=== PATIENT | male | born 1985 | race Caucasian/White ===

== ENCOUNTER 2021-10-15 00:11 | Observation (INO) ==
[2021-10-15] MEDS ORDERED: MoRPHine SULFATE 10 MG/ML CARP/VIAL IV STA ×3 (00:42→09:31)
[2021-10-15 00:53] LABS: Basophils # (auto) 0.05 K/uL (0-0.2); Basophils % (auto) 0.3 %; Eosinophils # (auto) 0.07 K/uL (0-0.50); Eosinophils % (auto) 0.4 %; Hematocrit (blood only) 49.5 % (40.1-51.0); Immature Granulocytes # (auto) 0.18 K/uL (0.00-0.02); Immature Granulocytes % (auto) 0.9 %; Lymphocytes # (auto) 1.24 K/uL (1.2-3.4); Lymphocytes % (auto) 6.4 %; Mean Corpuscular Hemoglobin 28.5 pg (25.0-34.0); Mean Corpuscular Hgb Conc 34.3 g/dL (32.0-36.0); Mean Corpuscular Volume 83.1 fL (80.0-100.0); Mean Platelet Volume 8.8 fL (9.4-12.4); Monocytes # (auto) 1.47 K/uL (0.24-0.82); Monocytes % (auto) 7.6 %; Neutrophils # (auto) 16.34 K/uL (1.4-6.5); Neutrophils % (auto) 84.4 %; Platelet Count 364 K/uL (130-400); RDW Coefficient of Variation 12.8 % (11.5-14.5); RDW Standard Deviation 38.5 fL (36.4-46.3); Red Blood Count 5.96 M/uL (4.63-6.08); White Blood Count 19.35 K/ul (4.8-10.8)
[2021-10-15 01:15] LABS: Albumin Globulin Ratio 1.5 (0.9-2); Albumin Level 4.7 gm/dl (3.4-5.0); BUN Creatinine Ratio 19.6 (10-20); Bilirubin,Total 1.1 mg/dl (0.2-1.0); Calcium 9.6 mg/dl (8.5-10.1); Creatinine Clr Calc Pharmacy 122.6 ml/min; Est GFR (African American) 122.7 ml/min; Est GFR (Non-African American) 105.9 ml/min; Globulin 3.2 gm/dl (2.5-4.0); Potassium 3.5 mmol/L (3.5-5.1); Total Protein 7.9 gm/dl (6.0-8.3)
[2021-10-15] MEDS ORDERED: ONDANSETRON INJ 2 MG/ML 2 ML VIAL IV STA ×3 (01:34→09:31)
[2021-10-15] MEDS ORDERED: OPTIRAY 320 100ml IV ONE (02:04)
[2021-10-15] MEDS ORDERED: DICYCLOMINE HCL 10 MG/ML 2 ML AMP/VIAL IM ONE (03:41)
[2021-10-15 03:57] LABS: Adenovirus F 40/41 PCR Not Detected (NotDetected); Astrovirus PCR Not Detected (NotDetected); Campylobacter PCR Not Detected (NotDetected); Clostridium diff Toxin A/B PCR Not Detected (NotDetected); Cryptosporidium PCR Not Detected (NotDetected); Cyclospora cayetanensis PCR Not Detected (NotDetected); Entamoeba histolytica PCR Not Detected (NotDetected); Enteroaggregative E.coli(EAEC) Not Detected (NotDetected); Enteropathogenic E.coli (EPEC) Not Detected (NotDetected); Enterotoxigenic E.coli (ETEC) Not Detected (NotDetected); Giardia lamblia PCR Not Detected (NotDetected); Norovirus GI/GII PCR Not Detected (NotDetected); Plesiomonas shigelloides PCR Not Detected (NotDetected); Rotavirus A PCR Not Detected (NotDetected); Salmonella PCR Not Detected (NotDetected); Sapovirus PCR Not Detected (NotDetected); Shiga-like Toxin E.coli (STEC) Not Detected (NotDetected); Shigella/Enteroinvasive E.coli Not Detected (NotDetected); Vibrio cholerae PCR Not Detected (NotDetected); Vibrio species PCR Not Detected (NotDetected); Yersinia enterocolitica PCR Not Detected (NotDetected)
[2021-10-15] MEDS ORDERED: SODIUM CHLORIDE 0.9% 1000ML 1,000 ML IV SCH ×2 (05:07→12:30)
--- NOTE | 2021-10-15 06:54 | Surgery Consultation ---
Date of Consultation October 15, 2021 Assessment & Plan (1) Small bowel obstruction: It appears that the patient has an obstruction at his ilio anal anastomosis. There is also concern the patient may have active inflammatory bowel disease. The treating clinician emergency department is planning on having medicine admit the patient. We recommend proceeding as follows: Hydrate the patient with IV fluids Provide analgesics Provide antiemetics Implement n.p.o. status Place an NG tube for decompression which may improve his symptoms. Recommend gastroenterology consultation for further recommendations concerning the concern for inflammatory bowel disease Supervising Physician Co-Signing Physician Notes Dr. 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 [place], [facility], [place] who recently scoped the patient-patient had some inflammatory disease in the segment of bowel Patient has not vomited but does have some nausea and is significantly distended, he does have some decreased bowel sounds I do feel he would benefit from an NG tube to decompress his stomach and proximal small bowel GI consult to assess for possible IV steroids or other anti-inflammatory agents If patient does not improve he will require transfer to [facility], [place] for GI/colorectal surgery evaluation History of Present Illness Reason for Consultation: Small bowel obstruction History of Present Illness This is a 35-year-old male who has an underlying history of ulcerative colitis. Patient says that this condition was diagnosed in 1995. 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 He notes that his ileostomy was ultimately reversed subsequently thereafter also at [facility]. Patient notes that following his surgery he was off ulcerative colitis medications and he was doing well. He reports that he would intermittently have episodes of pouchitis that would usually respond to modalities such as antibiotics and steroids. Currently the patient notes that he is taking his a prednisone taper. He presented the emergency department as he developed some generalized abdominal pain approximately 1 day ago. He does not note any modifying factors or radiation he notes the pain is now primarily located near the umbilicus. He has had nausea without vomiting. He is having loose bowel movements without any hematochezia or melena. He denies any fevers, shakes, or chills. Concerning the patient's inflammatory bowel disease he sees a Dr. [place] at [facility] in [place], [place]. He also follows with Dr. Franklin Mclaughlin locally. In the emergency department the patient underwent a CT scan of the abdomen and pelvis that showed concern for a bowel obstruction with a transition point near the distal ileum at the point of patient's ileal ileal anastomosis. There is also a 13 cm area of the diffuse mucosal enhancement and thickening noted which is concerning for inflammatory disease. Labs include a CBC her white blood cell count was 19.3. Hemoglobin, hematocrit, and platelet count were normal. His chemistry profile showed sodium was 135. Potassium, BUN, and creatinine were all normal. Slight elevation of his total bilirubin at 1.1 but no other LFT abnormalities were noted. His lipase was not elevated. At the time of my interview the patient was resting comfortably in bed he was in no distress. Allergies Allergy/AdvReac Type Severity Reaction Status Date / Time ethinyl estradiol Allergy Unknown Verified 10/15/21 02:08 [From Seasonale ()] levonorgestrel Allergy Unknown Verified 10/15/21 02:08 [From Seasonale ()] metronidazole [From Flagyl] AdvReac Mild abdominal Verified 10/15/21 02:08 cramping Home Medications Medication Instructions Recorded Confirmed Type cholecalciferol (vitamin D3) 1,250 50,000 unit PO WK cap 05/24/21 10/15/21 History mcg (50,000 unit) capsule cyanocobalamin (vitamin B-12) 1,000 mcg IM WE ml 05/24/21 10/15/21 History 1,000 mcg/mL injection solution lansoprazole 15 mg capsule,delayed 30 mg PO DAILY 05/24/21 10/15/21 History release (Prevacid 24Hr) fluticasone propionate 50 2 spray INTRANASAL DAILY 08/15/21 10/15/21 History mcg/actuation nasal spray,suspension prednisone 5 mg tablet 5 mg PO .TAPER UD 10/15/21 10/15/21 History Patient History Medical History Acid reflux Anal fissure Crohn's disease Diffuse ulcerations of jejunum and ileum Gastritis Hiatal hernia Hypertension Inflammation of ileoanal pouch Pouchitis Rectal lesion Ulcerative colitis Surgical History H/O colonoscopy History of esophagogastroduodenoscopy (EGD) History of total colectomy S/P proctocolectomy Family History Denies family history of Crohn's disease Colorectal cancer Ulcerative colitis Social History Smoking Status: Current every day smoker Hx Alcohol Use: Yes (social use) Hx Substance Use: No Preferred Language: Chilean Feels Safe at Home: Yes Review of Systems Constitutional: no fever and no chills Eyes: no diplopia Ear, Nose, Mouth, Throat: no ear pain Respiratory: no cough and no dyspnea Cardiovascular: no chest pain Gastrointestinal: as per Subjective / HPI, + abdominal pain and + nausea; no vomiting Genitourinary: no dysuria Musculoskeletal: no back pain Integumentary: no rash Neurologic: no localized weakness Physical Exam Constitutional: WD/WN, vitals as above Eyes: no conjunctival abnormality ENMT: Ears: no hearing impairment and no external ear abnormality Dry mucous membranes noted Neck: trachea midline Respiratory: normal respiratory effort, lungs clear to auscultation Cardiovascular: Rate/Rhythm: regular rate and regular rhythm Vessels: dorsalis pedis pulses present and radial pulses present Gastrointestinal (Abdomen): Abdomen is distended with hypoactive bowel sounds. There is no rebound tenderness or guarding. There is pain noted with palpation which is greatest near the umbilicus. Musculoskeletal: No calf tenderness Skin: no rashes Neurologic: moves all extremities Psychiatric: A+Ox3, euthymic affect Results & Data ([facility]) Vital Signs (Past 12 Hours) Vital Signs Temp Pulse Resp BP Pulse Ox 10/15/21 02:50 97 10/15/21 02:40 95 10/15/21 02:30 94 10/15/21 02:27 125/90 10/15/21 02:26 96 10/15/21 01:50 85 17 95 10/15/21 01:40 94 H 13 95 10/15/21 01:30 92 H 12 93 10/15/21 01:20 97 H 12 96 10/15/21 01:10 89 12 94 10/15/21 01:00 99 H 16 95 10/15/21 00:50 92 H 19 95 10/15/21 00:40 98 H 19 95 10/15/21 00:31 100 H 22 151/111 H 95 10/15/21 00:14 36.9 C 103 H 19 155/106 H 95 PG Care Time/CCT Total # of Minutes Spent Total Time Spent with Patient: Total time spent is greater than 50% in coordination of care (as documented) at patient's floor/unit and/or counseling patient: Coding Level of Care Code 69951 Inpt Consult Level 5 Diagnoses Small bowel obstruction K56.609
--- NOTE | 2021-10-15 07:02 | Emergency Department Note ---
Impression & Plan Bowel obstruction, Crohn's disease, Ulcerative colitis ED Provider Note CHIEF COMPLAINT: Abdominal pain HISTORY OF PRESENT ILLNESS: Yusef Brandon is a 35 year old male with history of ulcerative colitis s/p previous colectomy, pouchitis, Crohn's disease, Acid reflux, among others listed below who presents to the Emergency Department for evaluation of intermittent sharp and cramping pains to his left upper abdominal quadrant which have been worsening since yesterday morning. He also associates nausea and has had several episodes of watery diarrhea. Currently, he rates his discomfort as a 9/10 which he states worsens right before he has a bowel movement. No hematochezia or melena. No vomiting. The patient otherwise denies recent fevers/chills, chest pain, respiratory difficulties, or urinary symptoms. Of note, the patient recently had a pouchoscopy with Dr. Nicholson at [facility] and was found to have active inflammatory disease with involvement of the ileum and Crohns proximal to the pouch. They opted to stop his Entyvio with plans to start Stelera next week. He was also started on a Prednisone taper started at 30 mg daily to be decreased by 5 mg weekly (Currently on 25 mg daily). The patient does state that he frequently has abdominal pain and diarrhea but not to this severity. His bowel movements are also much more watery than normal. REVIEW OF SYSTEMS: 10 systems were reviewed and were negative unless otherwise stated in HPI as above PHYSICAL EXAM: VITALS: Vitals are noted on the nurse's note and reviewed by myself. Vital signs stable. General: Resting in bed, no acute distress HEENT: Normocephalic, PERRL, EOMI, mucous membranes moist, oropharynx clear Neck: Supple, non-tender Resp: Good inspiratory effort on room air, lung sounds clear bilaterally CV: Regular rate and rhythm, normal S1-S2, peripheral pulses palpated Back: No CVA tenderness to palpation Abd: Mildly distended but soft. Tender to palpation in the left upper quadrant with some guarding. No rebound or rigidity MSK: Moving all extremities without apparent pain or difficulty Integumentary: Warm, dry, no appreciable rash Neuro: Awake, alert and oriented x 3, interacting and answering questions appropriately Differential diagnosis includes appendicitis, diverticulitis, obstruction, inf lammatory bowel disease, renal colic, PUD, biliary pathology, pancreatitis, mesenteric ischemia, infection, perforated viscus, as well as others were entertained. EMERGENCY DEPARTMENT COURSE: Physical exam and history were performed. Nursing triage notes, EMR, and medication list were personally reviewed. Patient is a 35 year old male with history of ulcerative colitis s/p previous colectomy, pouchitis, Crohn's disease, Acid reflux, among others listed below who presents to the Emergency Department for evaluation of intermittent sharp and cramping pains to his left upper abdominal quadrant which have been worsening since yesterday morning. He also associates nausea and has had several episodes of watery diarrhea. Additional history as described above. See physical exam as noted above. The patient was offered medications. IV access was established was given a total of 1L NSS x 2, morphine 6 mg x 2, Zofran 4 mg x 2 and Bentyl 20 mg IM throughout his ED course. Labs were obtained and reviewed by myself as below. Of note, he does have leukocytosis with a WBC of 19.35 which could be due to current prednisone use. No concern for anemia with hemoglobin 17.0. Electrolytes WNL. Renal indices stable. LFTs nondiagnostic. Lipase not elevated at 14. Stool cultures were obtained and were negative. Scan of the abdomen and pelvis were obtained and reviewed by stat rad radi ologist myself as below. Imaging did show a bowel obstruction with transition point at the distal ileum at the ileoanal anastomosis. At the transition point, there is a 13 cm stretch of sigmoid colon with diffuse mucosal enhancement, annular wall thickening and narrowing. Findings concerning for active inflammatory disease. The patient was reevaluated several times throughout his emergency department course and was given the medications as above for ongoing pain and nausea. He did have several movements of liquid bowel movements while here. I did discuss the results of the above findings with him at bedside. Given his bowel obstruction, he will benefit from continued care in the hospital. I did consult Pedro Longo PA-C of General Surgery who agreed to evaluate the patient. I also c ontacted Dr. Horvath of the [facility] Hospitalist group who also agreed to evaluate the patient. General Surgery and the Hospitalist service evaluated the patient. They suggest transfer to a facility with colorectal surgery, likely [facility], for further management. The patient verbalized his understanding and agreement with the treatment plan as above. [facility] has been contacted, awaiting services with Colorectal surgery to contact us back regarding availability/acceptance. The patient was signed out to Dr. Chavez at change of shift pending likely transfer. Please refer to his documentation for further patient care, plan and disposition. The chart was completed utilizing [employer] Voice Recognition Software. Grammatical errors, random word insertions, pronoun errors, and incomplete sentences are an occasional consequence of this system due to software limitations, ambient noise, and hardware issues. Any formal questions or concerns about the content, text, or information contained within the body of this dictation should be directly addressed to the provider for clarification. Past Med/Surg History Medical History Acid reflux Anal fissure Crohn's disease Diffuse ulcerations of jejunum and ileum Gastritis Hiatal hernia Hypertension Inflammation of ileoanal pouch Pouchitis Rectal lesion Ulcerative colitis Surgical History H/O colonoscopy History of esophagogastroduodenoscopy (EGD) History of total colectomy S/P proctocolectomy Family History Denies family history of Crohn's disease Colorectal cancer Ulcerative colitis Social History Smoking Status: Current every day smoker Hx Alcohol Use: Yes (social use) Hx Substance Use: No Preferred Language: Armenian Feels Safe at Home: Yes Allergies Allergies Allergy/AdvReac Type Severity Reaction Status Date / Time ethinyl estradiol Allergy Unknown Verified 10/15/21 02:08 [From Seasonale (91)] levonorgestrel Allergy Unknown Verified 10/15/21 02:08 [From Seasonale (91)] metronidazole [From Flagyl] AdvReac Mild abdominal Verified 10/15/21 02:08 cramping Home Meds Home Medications Medication Instructions Recorded Confirmed cholecalciferol (vitamin D3) 1,250 50,000 unit PO WK cap 05/24/21 10/15/21 mcg (50,000 unit) capsule cyanocobalamin (vitamin B-12) 1,000 mcg IM WE ml 05/24/21 10/15/21 1,000 mcg/mL injection solution lansoprazole 15 mg capsule,delayed 30 mg PO DAILY 05/24/21 10/15/21 release (Prevacid 24Hr) fluticasone propionate 50 2 spray INTRANASAL DAILY 08/15/21 10/15/21 mcg/actuation nasal spray,suspension prednisone 5 mg tablet 5 mg PO .TAPER UD 10/15/21 10/15/21 Results & Data (ED) Vital Signs Vital Signs - 24 hr 10/15/21 00:11 10/15/21 00:14 10/15/21 00:31 Temperature 36.9 C Temperature Source Temporal Artery Scan Pulse Rate 103 H 100 H Pulse Rate from SpO2 Sensor 98 H Respiratory Rate 19 22 Respiratory Effort / Characteristics Non-Labored Respiratory Depth Normal Blood Pressure 155/106 H 151/111 H Blood Pressure Mean 122 124 Pulse Oximetry 95 95 Oxygen Delivery Method Room Air Sepsis Recent Fever Within 48 Hours No Sepsis New/Unexplained Change in Mental Status N/A Sepsis Action Taken by Nursing No Action Required 10/15/21 00:40 10/15/21 00:50 10/15/21 01:00 Temperature Temperature Source Pulse Rate 98 H 92 H 99 H Pulse Rate from SpO2 Sensor 94 H 94 H 95 H Respiratory Rate 19 19 16 Respiratory Effort / Characteristics Respiratory Depth Blood Pressure Blood Pressure Mean Pulse Oximetry 95 95 95 Oxygen Delivery Method Sepsis Recent Fever Within 48 Hours Sepsis New/Unexplained Change in Mental Status Sepsis Action Taken by Nursing 10/15/21 01:10 10/15/21 01:20 10/15/21 01:30 Temperature Temperature Source Pulse Rate 89 97 H 92 H Pulse Rate from SpO2 Sensor 92 H 92 H 94 H Respiratory Rate 12 12 12 Respiratory Effort / Characteristics Respiratory Depth Blood Pressure Blood Pressure Mean Pulse Oximetry 94 96 93 Oxygen Delivery Method Sepsis Recent Fever Within 48 Hours Sepsis New/Unexplained Change in Mental Status Sepsis Action Taken by Nursing 10/15/21 01:40 10/15/21 01:50 10/15/21 02:26 Temperature Temperature Source Pulse Rate 94 H 85 Pulse Rate from SpO2 Sensor 95 H 81 92 H Respiratory Rate 13 17 Respiratory Effort / Characteristics Respiratory Depth Blood Pressure Blood Pressure Mean Pulse Oximetry 95 95 96 Oxygen Delivery Method Sepsis Recent Fever Within 48 Hours Sepsis New/Unexplained Change in Mental Status Sepsis Action Taken by Nursing 10/15/21 02:27 10/15/21 02:30 10/15/21 02:40 Temperature Temperature Source Pulse Rate Pulse Rate from SpO2 Sensor 87 87 Respiratory Rate Respiratory Effort / Characteristics Respiratory Depth Blood Pressure 125/90 Blood Pressure Mean 101 Pulse Oximetry 94 95 Oxygen Delivery Method Sepsis Recent Fever Within 48 Hours Sepsis New/Unexplained Change in Mental Status Sepsis Action Taken by Nursing 10/15/21 02:50 10/15/21 04:11 10/15/21 07:11 Temperature Temperature Source Pulse Rate Pulse Rate from SpO2 Sensor 87 110 H Respiratory Rate Respiratory Effort / Characteristics Non-Labored Respiratory Depth Normal Blood Pressure Blood Pressure Mean Pulse Oximetry 97 Oxygen Delivery Method Sepsis Recent Fever Within 48 Hours Sepsis New/Unexplained Change in Mental Status Sepsis Action Taken by Nursing 10/15/21 07:52 10/15/21 08:00 10/15/21 08:13 Temperature Temperature Source Pulse Rate Pulse Rate from SpO2 Sensor 92 H 95 H 90 Respiratory Rate Respiratory Effort / Characteristics Respiratory Depth Blood Pressure 169/98 H Blood Pressure Mean 121 Pulse Oximetry 93 94 93 Oxygen Delivery Method Sepsis Recent Fever Within 48 Hours Sepsis New/Unexplained Change in Mental Status Sepsis Action Taken by Nursing Laboratory Data Result diagrams: 10/15/21 00:30 10/15/21 00:30 Lab Results 10/15/21 10/15/21 10/15/21 Range/Units 00:30 00:30 02:25 WBC 19.35 H (4.8-10.8) K/ul RBC 5.96 (4.63-6.08) M/uL Hgb 17.0 (14.0-18.0) g/dl Hct 49.5 (40.1-51.0) % MCV 83.1 (80.0-100.0) fL MCH 28.5 (25.0-34.0) pg MCHC 34.3 (32.0-36.0) g/dL RDW Std Deviation 38.5 (36.4-46.3) fL RDW Coeff of Barbie 12.8 (11.5-14.5) % Plt Count 364 (130-400) K/uL MPV 8.8 L (9.4-12.4) fL Immature Gran % (Auto) 0.9 % Neut % (Auto) 84.4 % Lymph % (Auto) 6.4 % Calloway % (Auto) 7.6 % Eos % (Auto) 0.4 % Baso % (Auto) 0.3 % Neut # (Auto) 16.34 H (1.4-6.5) K/uL Lymph # (Auto) 1.24 (1.2-3.4) K/uL Calloway # (Auto) 1.47 H (0.24-0.82) K/uL Eos # (Auto) 0.07 (0-0.50) K/uL Baso # (Auto) 0.05 (0-0.2) K/uL Immature Gran # (Auto) 0.18 H (0.00-0.02) K/uL Sodium 135 L (136-145) mmol/L Potassium 3.5 (3.5-5.1) mmol/L Chloride 99 (98-107) mmol/L Carbon Dioxide 26 (21-32) mmol/L Anion Gap 10 (3-11) BUN 18 (6-23) mg/dl Creatinine 0.92 (0.6-1.4) mg/dl Est Cr Clr Drug Dosing 122.6 ml/min Est GFR ( Amer) 122.7 ml/min Est GFR (Non-Af Amer) 105.9 ml/min BUN/Creatinine Ratio 19.6 (10-20) Glucose 130 H (70-99(Fasting)) mg/dl Calcium 9.6 (8.5-10.1) mg/dl Total Bilirubin 1.1 H (0.2-1.0) mg/dl AST 16 (13-39) U/L ALT 25 (7-52) U/L Alkaline Phosphatase 53 (34-104) U/L Total Protein 7.9 (6.0-8.3) gm/dl Albumin 4.7 (3.4-5.0) gm/dl Globulin 3.2 (2.5-4.0) gm/dl Albumin/Globulin Ratio 1.5 (0.9-2) Lipase 14 (11-82) U/L Stl C. cayetanensis PCR Not Detected (NotDetected) Stool Rotavirus A PCR Not Detected (NotDetected) Stl Adenov F 40/41 PCR Not Detected (NotDetected) Stool Astrovirus (PCR) Not Detected (NotDetected) Stool Campylobacter PCR Not Detected (NotDetected) Stl C. diff Tox A/B PCR Not Detected (NotDetected) Stool Cryptosporidium PCR Not Detected (NotDetected) Stl E.coli Shiga Tox PCR Not Detected (NotDetected) Stl Enterotoxigenic E PCR Not Detected (NotDetected) Stool EPEC (PCR) Not Detected (NotDetected) Stool EAEC (PCR) Not Detected (NotDetected) Stl E. histolytica PCR Not Detected (NotDetected) Stool Giardia Lamblia PCR Not Detected (NotDetected) Stool Salmonella PCR Not Detected (NotDetected) Stool Sapovirus (PCR) Not Detected (NotDetected) Stl P. shigelloides PCR Not Detected (NotDetected) Stl Shigella/EIEC PCR Not Detected (NotDetected) St Y.enterocolitica PCR Not Detected (NotDetected) Stool Vibrio (PCR) Not Detected (NotDetected) Stl Vibrio cholerae PCR Not Detected (NotDetected) Stl Norovirus GI/GII PCR Not Detected (NotDetected) SARS-CoV-2, RNA, NAAT (NEGATIVE) 10/15/21 Range/Units 08:15 WBC (4.8-10.8) K/ul RBC (4.63-6.08) M/uL Hgb (14.0-18.0) g/dl Hct (40.1-51.0) % MCV (80.0-100.0) fL MCH (25.0-34.0) pg MCHC (32.0-36.0) g/dL RDW Std Deviation (36.4-46.3) fL RDW Coeff of Barbie (11.5-14.5) % Plt Count (130-400) K/uL MPV (9.4-12.4) fL Immature Gran % (Auto) % Neut % (Auto) % Lymph % (Auto) % Calloway % (Auto) % Eos % (Auto) % Baso % (Auto) % Neut # (Auto) (1.4-6.5) K/uL Lymph # (Auto) (1.2-3.4) K/uL Calloway # (Auto) (0.24-0.82) K/uL Eos # (Auto) (0-0.50) K/uL Baso # (Auto) (0-0.2) K/uL Immature Gran # (Auto) (0.00-0.02) K/uL Sodium (136-145) mmol/L Potassium (3.5-5.1) mmol/L Chloride (98-107) mmol/L Carbon Dioxide (21-32) mmol/L Anion Gap (3-11) BUN (6-23) mg/dl Creatinine (0.6-1.4) mg/dl Est Cr Clr Drug Dosing ml/min Est GFR ( Amer) ml/min Est GFR (Non-Af Amer) ml/min BUN/Creatinine Ratio (10-20) Glucose (70-99(Fasting)) mg/dl Calcium (8.5-10.1) mg/dl Total Bilirubin (0.2-1.0) mg/dl AST (13-39) U/L ALT (7-52) U/L Alkaline Phosphatase (34-104) U/L Total Protein (6.0-8.3) gm/dl Albumin (3.4-5.0) gm/dl Globulin (2.5-4.0) gm/dl Albumin/Globulin Ratio (0.9-2) Lipase (11-82) U/L Stl C. cayetanensis PCR (NotDetected) Stool Rotavirus A PCR (NotDetected) Stl Adenov F 40/41 PCR (NotDetected) Stool Astrovirus (PCR) (NotDetected) Stool Campylobacter PCR (NotDetected) Stl C. diff Tox A/B PCR (NotDetected) Stool Cryptosporidium PCR (NotDetected) Stl E.coli Shiga Tox PCR (NotDetected) Stl Enterotoxigenic E PCR (NotDetected) Stool EPEC (PCR) (NotDetected) Stool EAEC (PCR) (NotDetected) Stl E. histolytica PCR (NotDetected) Stool Giardia Lamblia PCR (NotDetected) Stool Salmonella PCR (NotDetected) Stool Sapovirus (PCR) (NotDetected) Stl P. shigelloides PCR (NotDetected) Stl Shigella/EIEC PCR (NotDetected) St Y.enterocolitica PCR (NotDetected) Stool Vibrio (PCR) (NotDetected) Stl Vibrio cholerae PCR (NotDetected) Stl Norovirus GI/GII PCR (NotDetected) SARS-CoV-2, RNA, NAAT NEGATIVE (NEGATIVE) Administered Medications Discontinued Medications Dicyclomine HCl (Dicyclomine Hcl 10 Mg/Ml 2 Ml Amp/Vial) 20 mg IM NOW ONE Stop: 10/15/21 03:42 Last Admin: 10/15/21 03:51 Dose: 20 mg Documented by: [id number] Sodium Chloride (Nss 1000ml) 1,000 mls @ 999 mls/hr IV .Q1H1M KASEY Stop: 10/15/21 06:07 Last Infusion: 10/15/21 07:20 Dose: 0 mls/hr Documented by: [id number] Admin: 10/15/21 05:09 Dose: 999 mls/hr Documented by: [id number] Ioversol (Optiray 320 100ml) 94 ml IV ONCE ONE Stop: 10/15/21 02:05 Last Admin: 10/15/21 02:05 Dose: 94 ml Documented by: [id number] Morphine Sulfate (Morphine Sulfate 10 Mg/Ml Carp/Vial) 6 mg IV NOW STA Stop: 10/15/21 00:43 Last Admin: 10/15/21 00:58 Dose: 6 mg Documented by: [id number] Morphine Sulfate (Morphine Sulfate 10 Mg/Ml Carp/Vial) 6 mg IV NOW STA Stop: 10/15/21 05:07 Last Admin: 10/15/21 05:18 Dose: 6 mg Documented by: [id number] Morphine Sulfate (Morphine Sulfate 10 Mg/Ml Carp/Vial) 6 mg IV NOW STA Stop: 10/15/21 09:32 Last Admin: 10/15/21 09:40 Dose: 6 mg Documented by: [id number] Ondansetron HCl (Ondansetron Inj 2 Mg/Ml 2 Ml Vial) 4 mg IV NOW STA Stop: 10/15/21 01:35 Last Admin: 10/15/21 01:42 Dose: 4 mg Documented by: [id number] Ondansetron HCl (Ondansetron Inj 2 Mg/Ml 2 Ml Vial) 4 mg IV NOW STA Stop: 10/15/21 05:07 Last Admin: 10/15/21 05:18 Dose: 4 mg Documented by: [id number] Ondansetron HCl (Ondansetron Inj 2 Mg/Ml 2 Ml Vial) 4 mg IV NOW STA Stop: 10/15/21 09:32 Last Admin: 10/15/21 09:38 Dose: 4 mg Documented by: [id number] Imaging Data My Impression: CT Abd/Pelvis: Preliminary Findings Only See Final Report For Complete Findings CT ABDOMEN & PELVIS With Contrast: Bowel obstruction with transition point at the distal ileum at the ileoanal anastomosis. At the transition point is a 13 cm stretch of sigmoid colon with diffuse of mucosal enhancement, annular wall thickening, and narrowing. Findings are concerning for active inflammatory disease. Consider MR enterography if there is further concern. Upstream bowel loops measure up to 4.9 cm. No evidence of perforation or abscess. No pneumatosis or portal venous gas. No other acute findings. Radiologist: Terrence Pemberton MD Radiologist's Impression: Chest X-Ray 10/15/21 07:53 XR chest 1V portable CLINICAL HISTORY: NG tube placement TECHNIQUE: Single frontal radiograph of the chest was obtained. Comparison: None available at the time of this dictation. FINDINGS: Enteric tube side-port and tip project over the gastric bubble. The cardiomediastinal silhouette is normal. The lungs are clear. No evidence of pleural effusion or pneumothorax. IMPRESSION: Enteric tube is in satisfactory position. ACT 112: Negative or not required by law. Electronically signed by: Micheal Dominguez M.D. 10/15/2021 8:36 AM Final results pending review by the [facility] radiologist. Discharge Plan Visit Data Chief Complaint: Abdominal Pain Stated Complaint: ABD PAIN ED Provider: David Chavez ED Midlevel Provider: Brandy Mccarty Discharge Problem: Bowel obstruction, Crohn's disease, Ulcerative colitis Patient Disposition: Still a Patient Forms Stand Alone Forms: My [facility] Prescriptions Prescriptions: No Action cholecalciferol (vitamin D3) 1,250 mcg (50,000 unit) capsule 50,000 unit PO WK RF: 0 cyanocobalamin (vitamin B-12) 1,000 mcg/mL solution 1,000 mcg IM WE RF: 0 lansoprazole [Prevacid 24Hr] 15 mg capsule,delayed release(DR/EC) 30 mg PO DAILY RF: 0 fluticasone propionate 50 mcg/actuation spray,suspension 2 spray intranasal DAILY RF: 0 prednisone 5 mg tablet 5 mg PO .TAPER UD RF: 0 Referrals Referrals: Sloan Nicholson M.D. [Primary Care Provider] -
--- NOTE | 2021-10-15 08:37 | XRay Report ---
XR chest 1V portable CLINICAL HISTORY: NG tube placement TECHNIQUE: Single frontal radiograph of the chest was obtained. Comparison: None available at the time of this dictation. FINDINGS: Enteric tube side-port and tip project over the gastric bubble. The cardiomediastinal silhouette is n ormal. The lungs are clear. No evidence of pleural effusion or pneumothorax. IMPRESSION: Enteric tube is in satisfactory position. ACT 112: Negative or not required by law. Electronically signed by: Micheal Dominguez M.D. 10/15/2021 8:36 AM
--- NOTE | 2021-10-15 10:14 | CT Scan Report ---
CT abd pelvis IV con only CLINICAL HISTORY: LUQ abdominal pain, hx colitis, sp colectomy COMPARISON STUDY: No previous studies for comparison. CT DOSE: 653.37 mGy.cm TECHNIQUE: Standard CT of the Abdomen and Pelvis was performed with IV contrast. A dose lowering mariangel hnique was utilized adhering to the principles of ALARA. Contrast Volume: Optiray 320, 94 ml. The patient did not receive oral contrast. FINDINGS: Lung base: The lung bases are clear. Abdominal cavity: There is no evidence for abdominal mass, adenopathy or ascites. Liver: There is homogeneous attenuation of the liver parenchyma. There is no evidence for enhancing m ass lesion. Spleen: There is homogeneous attenuation of the splenic parenchyma. There is no enhancing mass lesion . Pancreas: There is homogeneous attenuation of the pancreatic parenchyma. There is no evidence for mas s lesion or peripancreatic fluid collection. Gall Bladder: The gallbladder is well distended with no evidence for intraluminal calculi, wall thick ening or pericholecystic edema. Adrenal glands: The adrenal glands are normal in size and attenuation. There is no evidence for enhan cing mass lesion. Kidneys: There is homogeneous attenuation of the renal parenchyma bilaterally. There is no evidence f or renal calculus or hydronephrosis. There is no evidence for enhancing mass. Bowel: The patient is status post total colectomy with J pouch procedure. There is marked distention of stomach with liquid and food stuff. There is moderate dilatation of the small bowel loops througho ut the abdomen and pelvis to the level of the anastomosis. There is narrowing of the distal ileum at the anastomosis producing the obstruction present. There are no inflammatory changes present. There i s no evidence for free air. Bladder: The bladder is within normal limits with no evidence for focal mass, calculus or diverticulu m. : There is no evidence for pelvic mass or adenopathy. There is no evidence for pelvic ascites. Vasculature: There is no evidence for aneurysmal dilatation of the abdominal aorta. Osseous structures: There is no acute osseous pathology. IMPRESSION: 1. Status post total colectomy with J-pouch procedure. 2. Stricture of the distal ileum at the anastomosis of the J-pouch producing moderate bowel obstructi on. ACT 112: Negative or not required by law. Electronically signed by: Terrence Almanza M.D. 10/15/2021 10:12 AM
[2021-10-15 10:32] LABS: Basophils # (auto) 0.06 K/uL (0-0.2); Basophils % (auto) 0.5 %; Eosinophils # (auto) 0.16 K/uL (0-0.50); Eosinophils % (auto) 1.4 %; Hematocrit (blood only) 46.4 % (40.1-51.0); Hemoglobin 15.9 g/dl (14.0-18.0); Immature Granulocytes # (auto) 0.05 K/uL (0.00-0.02); Immature Granulocytes % (auto) 0.4 %; Lymphocytes # (auto) 0.85 K/uL (1.2-3.4); Lymphocytes % (auto) 7.3 %; Mean Corpuscular Hemoglobin 28.6 pg (25.0-34.0); Mean Corpuscular Hgb Conc 34.3 g/dL (32.0-36.0); Mean Corpuscular Volume 83.5 fL (80.0-100.0); Mean Platelet Volume 8.6 fL (9.4-12.4); Monocytes # (auto) 0.92 K/uL (0.24-0.82); Monocytes % (auto) 7.9 %; Neutrophils # (auto) 9.59 K/uL (1.4-6.5); Neutrophils % (auto) 82.5 %; Platelet Count 214 K/uL (130-400); RDW Standard Deviation 39.5 fL (36.4-46.3); Red Blood Count 5.56 M/uL (4.63-6.08); White Blood Count 11.63 K/ul (4.8-10.8)
[2021-10-15 10:50] LABS: Albumin Globulin Ratio 1.4 (0.9-2); Albumin Level 3.9 gm/dl (3.4-5.0); BUN Creatinine Ratio 25.3 (10-20); Bilirubin,Total 1.6 mg/dl (0.2-1.0); Calcium 8.5 mg/dl (8.5-10.1); Creatinine Clr Calc Pharmacy 142.8 ml/min; Est GFR (Non-African American) 114.7 ml/min; Globulin 2.8 gm/dl (2.5-4.0); Potassium 3.4 mmol/L (3.5-5.1); Total Protein 6.7 gm/dl (6.0-8.3)
--- NOTE | 2021-10-15 12:51 | Gastrointestinal Consultation ---
Date of Consultation October 15, 2021 Assessment & Plan (1) Small bowel obstruction: (2) Inflammatory bowel disease: SBO at anastomosis site of prior surgery, worsening IBD despite prednisone taper recs: start IV solumedrol now 20 mg [id number] NPO NG tube to intermittent suction pain control prn, IVFs agree with primary team and recommend transfer to [facility] where there is colorectal surgery availability should he not respond to IV steroids/continue to deteriorate Thank you for allowing me to participate in the care of this patient. History of Present Illness History of Present Illness 35 year old male with history of ulcerative colitis s/p previous colectomy, pouchitis, Inflammatory Bowel disease on entyvio here with worsening abdominal pains. He developed watery diarrhea and sharp LUQ abdominal pains yesterday with nausea, pain was 9/10. CT imaging shows SBO at the site of his prior surgery at the anastomosis it appears. He sees [facility] and Gerber ESTEVEZ and the plan was to switch him to stelara this coming week. He is on a prednisone taper currently at 25 mg daily. CBC and CMP reviewed. NG tube in place. Allergies Allergy/AdvReac Type Severity Reaction Status Date / Time ethinyl estradiol Allergy Unknown Verified 10/15/21 02:08 [From Seasonale ()] levonorgestrel Allergy Unknown Verified 10/15/21 02:08 [From Seasonale (91)] metronidazole [From Flagyl] AdvReac Mild abdominal Verified 10/15/21 02:08 cramping Home Medications Medication Instructions Recorded Confirmed Type cholecalciferol (vitamin D3) 1,250 50,000 unit PO WK cap 05/24/21 10/15/21 History mcg (50,000 unit) capsule cyanocobalamin (vitamin B-12) 1,000 mcg IM WE ml 05/24/21 10/15/21 History 1,000 mcg/mL injection solution lansoprazole 15 mg capsule,delayed 30 mg PO DAILY 05/24/21 10/15/21 History release (Prevacid 24Hr) fluticasone propionate 50 2 spray INTRANASAL DAILY 08/15/21 10/15/21 History mcg/actuation nasal spray,suspension prednisone 5 mg tablet 5 mg PO .TAPER UD 10/15/21 10/15/21 History Patient History Medical History Acid reflux Anal fissure Crohn's disease Diffuse ulcerations of jejunum and ileum Gastritis Hiatal hernia Hypertension Inflammation of ileoanal pouch Pouchitis Rectal lesion Ulcerative colitis Surgical History H/O colonoscopy History of esophagogastroduodenoscopy (EGD) History of total colectomy S/P proctocolectomy Family History Denies family history of Crohn's disease Colorectal cancer Ulcerative colitis Social History Smoking Status: Current every day smoker Hx Alcohol Use: Yes (social use) Hx Substance Use: No Preferred Language: Omani Feels Safe at Home: Yes Review of Systems Constitutional: no fever, no chills and no weight loss Eyes: as per Subjective / HPI Ear, Nose, Mouth, Throat: as per Subjective / HPI Respiratory: no dyspnea and no dyspnea on exertion Cardiovascular: no chest pain and no palpitations Gastrointestinal: as per Subjective / HPI Musculoskeletal: no joint pain and no swelling Integumentary: no rash and no lesions Neurologic: no numbness and no paresthesia Psychiatric: no depression and no anxiety Endocrine: no fatigue Hematologic / Lymphatic: no easy bleeding and no easy bruising Physical Exam Constitutional: WD/WN, vitals as above Eyes: EOM intact bilaterally Neck: normal visual inspection Respiratory: normal respiratory effort, lungs clear to auscultation Cardiovascular: RRR, no murmur, no edema Gastrointestinal (Abdomen): Inspection/Auscultation: abdomen normal to inspection; abdomen not distended Percussion/Palpation: + abdomen tender (LUQ) and abdomen soft; no hepatosplenomegaly Musculoskeletal: Extremities: no cyanosis Gait: normal gait Skin: no rashes, warm and dry Neurologic: moves all extremities Psychiatric: A+Ox3, euthymic affect Results & Data ([facility]) Vital Signs (Past 12 Hours) Vital Signs Pulse Resp BP Pulse Ox 10/15/21 11:57 20 151/95 H 96 10/15/21 11:30 92 10/15/21 11:00 95 10/15/21 10:30 94 10/15/21 10:00 92 10/15/21 09:43 95 10/15/21 08:13 169/98 H 93 10/15/21 08:00 94 10/15/21 07:52 93 10/15/21 02:50 97 10/15/21 02:40 95 10/15/21 02:30 94 10/15/21 02:27 125/90 10/15/21 02:26 96 10/15/21 01:50 85 17 95 10/15/21 01:40 94 H 13 95 10/15/21 01:30 92 H 12 93 10/15/21 01:20 97 H 12 96 10/15/21 01:10 89 12 94 10/15/21 01:00 99 H 16 95 10/15/21 00:50 92 H 19 95 PG Care Time/CCT Total # of Minutes Spent Total Time Spent with Patient: Total time spent is greater than 50% in coordination of care (as documented) at patient's floor/unit and/or counseling patient: Coding Level of Care Code 74349 Office/OBS Consult Lvl 4 Diagnoses Small bowel obstruction K56.609 Inflammatory bowel disease K52.9
--- NOTE | 2021-10-15 13:23 | Emergency Department Note ---
ED Visit Note ED Physician Sign Out Note: 35-year-old male with a history of ulcerative colitis/Crohn's disease who underwent a colectomy 20 years ago. He has had some on and off issues with his J-pouch and was scoped a few months ago showing ulcers. He has been on and off some prednisone since then. Patient notes rapid worsening abdominal pain and vomiting yesterday which brought him into the emergency department last night. He was initially worked up by the overnight team and found to have an acute bowel obstruction with 13 cm sigmoid colon and 4.5 cm small bowel. Initial work-up revealed elevated white blood cell count. Hospitalist and general surgery were consulted. Given the patient's inflammatory disease, small bowel obstruction and previous work-ups at [facility] the admitting team felt the patient should be transferred to higher level of care. He was signed out to me pending [facility] involvement. Initially the overnight team did talk to Dr. Gaines at [facility] for general surgery who advised a colorectal surgeon will need to be involved. Patient was evaluated by me while awaiting this consult. Patient's heart rate has improved she is breathing comfortably and is in no distress with an NG tube in place. He has had about 1 L of gastric secretions removed so far. He is receiving IV morphine for pain control. He states he is feeling better and he is not having significant abdominal pain at this time. He does have active bowel sounds currently. He has no peritonitis on examination currently. Given his initial findings and the fact has been here for almost half a day I did repeat some labs including CBC and lactate which reveal improvement in his white count and normal lactic acid. He is not hypotensive or febrile at this time. I had several discussions with general surgery as well given the fact that we are still waiting on distributed energy systems consultant at [facility]. Around 11:[address] Carpenter from [facility] colorectal surgery excepted the patient to [facility]. Patient is agreeable to this and was able to sign transfer paperwork. Unfortunately unable to get yet of how long the patient will be in this ER pending this transfer. There is no bed available initially. There were many repeat evaluations of the patient throughout the morning and early afternoon. He is not septic appearing is breathing comfortably and NG tube is continuing to output gastric secretions. He does not in extremis nor does he have peritonitis at this time. After many hours patient continues to not have a bed at [facility]. We rediscussed this with [facility] at around 3:30 PM and they note they have no idea when there will be a bed available and could be quite some time. I do not think that continued management in the ER setting of this issue is safe for the patient and thus I discussed the case further with our on-call general surgeon who agrees that it is a difficult situation and that admitting him to this facility is probably the best case. He notes patient likely would not have surgery at this location if it came to that but to manage him here from a medical standpoint currently is reasonable. Hospitalist was reconsulted and are made aware of the situation as well. David Chavez MD
[2021-10-15] MEDS ORDERED: SODIUM CHLORIDE 0.9% 1000ML 1,000 ML IV ONE (15:25)
[2021-10-15 16:21] LABS: Basophils # (auto) 0.05 K/uL (0-0.2); Basophils % (auto) 0.5 %; Eosinophils # (auto) 0.25 K/uL (0-0.50); Eosinophils % (auto) 2.6 %; Hematocrit (blood only) 46.7 % (40.1-51.0); Hemoglobin 15.6 g/dl (14.0-18.0); Immature Granulocytes # (auto) 0.05 K/uL (0.00-0.02); Immature Granulocytes % (auto) 0.5 %; Lymphocytes # (auto) 1.04 K/uL (1.2-3.4); Lymphocytes % (auto) 10.9 %; Mean Corpuscular Hemoglobin 28.2 pg (25.0-34.0); Mean Corpuscular Hgb Conc 33.4 g/dL (32.0-36.0); Mean Corpuscular Volume 84.3 fL (80.0-100.0); Mean Platelet Volume 8.6 fL (9.4-12.4); Monocytes # (auto) 1.32 K/uL (0.24-0.82); Monocytes % (auto) 13.9 %; Neutrophils % (auto) 71.6 %; Platelet Count 247 K/uL (130-400); RDW Standard Deviation 39.8 fL (36.4-46.3); Red Blood Count 5.54 M/uL (4.63-6.08); White Blood Count 9.51 K/ul (4.8-10.8)
[2021-10-15 16:39] LABS: Albumin Globulin Ratio 1.5 (0.9-2); BUN Creatinine Ratio 24.1 (10-20); Bilirubin,Total 1.7 mg/dl (0.2-1.0); C Reactive Protein 4.58 mg/dl (0-0.5); Calcium 8.4 mg/dl (8.5-10.1); Creatinine Clr Calc Pharmacy 135.9 ml/min; Est GFR (African American) 130.3 ml/min; Est GFR (Non-African American) 112.4 ml/min; Globulin 2.7 gm/dl (2.5-4.0); Potassium 3.6 mmol/L (3.5-5.1); Total Protein 6.7 gm/dl (6.0-8.3)
--- NOTE | 2021-10-15 16:41 | History & Physical Report ---
Date of Service October 15, 2021 Assessment & Plan (1) Small bowel obstruction: Plan: CT a/p on admission showed: Stricture of the distal ileum at the anastomosis of the J-pouch producing moderate bowel obstruction. - NPO - NG tube placed in ER - low, intermittent suction - Pain and nausea control - Have discussed with Dr. Nicholson and Dr. Dubon today. All agree he requires colorectal surgery, and patient prefers to go to [facility] where his present GI doctor is located. Has been accepted at [facility], but waiting for a bed. In the meantime, will treat conservatively. The patient is aware that he needs transfer, but is willing to stay at our facility until bed is available at [facility]. (2) Inflammatory bowel disease: Plan: Previously diagnosed with UC s/p total colectomy and J-pouch formation. Per GI notes, patient underwent pouchoscopy which showed some inflammation above the ileum, so my understanding is that this is an overlap syndrome or possibly new Crohn's dianogsis. - Stool PCR was negative for C. diff or any other infectious etiology on 10/15 - Start Solu-Medrol 20 mg IV Q8h per GI - Closely monitor - GI following - Appreciate their help. (3) Hypertension: Plan: Not on home meds. - Monitor BP (4) DVT prophylaxis: Plan: IBD is an high-risk, pro-thrombotic state. (PMID:[id number]) - Heparin 5,000 units SQ Q12h History of Present Illness Primary Care Provider: Sloan Nicholson 35yo M w/ hx of Crohn's disease s/p colectomy in 2000 who presents with SBO and Crohn's flare. The patient has been seeing Dr. Nicholson and Dr. Mclaughlin for his Crohn's disease. He was on a steroid taper with Dr. Mclaughlin, and he was getting approval for [facility]. He had seen Dr. Mclaughlin on 10/10, and he was down to prednisone 25 mg PO daily. Yesterday at approx. 10pm, he had acute onset sharp, cramping abdominal pain accompanied by nausea, but no emesis. He also had some watery diarrhea, but no blood bowel movements. No alleviating or exacerbating factors. Came to the ER. Allergies Allergy/AdvReac Type Severity Reaction Status Date / Time ethinyl estradiol Allergy Unknown Verified 10/15/21 02:08 [From Seasonale (91)] levonorgestrel Allergy Unknown Verified 10/15/21 02:08 [From Seasonale (91)] metronidazole [From Flagyl] AdvReac Mild abdominal Verified 10/15/21 02:08 cramping Home Medications Medication Instructions Recorded Confirmed Type cholecalciferol (vitamin D3) 1,250 50,000 unit PO WK cap 05/24/21 10/15/21 History mcg (50,000 unit) capsule cyanocobalamin (vitamin B-12) 1,000 mcg IM WE ml 05/24/21 10/15/21 History 1,000 mcg/mL injection solution lansoprazole 15 mg capsule,delayed 30 mg PO DAILY 05/24/21 10/15/21 History release (Prevacid 24Hr) fluticasone propionate 50 2 spray INTRANASAL DAILY 08/15/21 10/15/21 History mcg/actuation nasal spray,suspension prednisone 5 mg tablet 5 mg PO .TAPER UD 10/15/21 10/15/21 History Past Med/Surg History Medical History Acid reflux Anal fissure Crohn's disease Diffuse ulcerations of jejunum and ileum Gastritis Hiatal hernia Hypertension Inflammation of ileoanal pouch Pouchitis Rectal lesion Ulcerative colitis Surgical History H/O colonoscopy History of esophagogastroduodenoscopy (EGD) History of total colectomy S/P proctocolectomy Family History Denies family history of Crohn's disease Colorectal cancer Ulcerative colitis Social History Smoking Status: Current every day smoker Hx Alcohol Use: Yes (social use) Hx Substance Use: No Preferred Language: Chinese Feels Safe at Home: Yes Review of Systems Review of Systems: All systems reviewed & are unremarkable except as noted in HPI & below Physical Exam Constitutional: WD/WN, vitals as above Eyes: EOM intact bilaterally; no conjunctival abnormality ENMT: external ear and nose normal, oropharynx normal Neck: trachea midline, no thyromegaly normal visual inspection Respiratory: normal respiratory effort, lungs clear to auscultation no respiratory distress Cardiovascular: RRR, no murmur, no edema Gastrointestinal (Abdomen): Inspection/Auscultation: + abdomen distended and + hypoactive bowel sounds Percussion/Palpation: + abdomen tender (LLQ and LUQ predominantly) and abdomen soft; no guarding and abdomen not rigid Musculoskeletal: no cyanosis or clubbing, extremities motor strength 5/5 Skin: no rashes, warm and dry Neurologic: moves all extremities and awake Psychiatric: Orientation: alert, oriented to person and cooperative Results & Data Results & Data ([facility]) Vital Signs (Past 12 Hours) Vital Signs Temp Pulse Resp BP BP Pulse Ox 10/15/21 15:10 36.1 C L 108 H 18 131/90 97 10/15/21 11:57 20 151/95 H 96 10/15/21 11:30 92 10/15/21 11:00 95 10/15/21 10:30 94 10/15/21 10:00 92 10/15/21 09:43 95 10/15/21 08:13 169/98 H 93 10/15/21 08:00 94 10/15/21 07:52 93 Code Status & VTE Plan VTE Prophylaxis Plan VTE Prophylaxis will be ordered: Yes PG Care Time/CCT Total # of Minutes Spent Total Time Spent with Patient: Total time spent is greater than 50% in coordination of care (as documented) at patient's floor/unit and/or counseling patient: Coding Level of Care Code 41635 Initial Inpt Care Lvl 3 Diagnoses Small bowel obstruction K56.609 Inflammatory bowel disease K52.9 Hypertension I10 DVT prophylaxis Z29.9
[2021-10-15] MEDS ORDERED: METHYLPREDNISOLONE IV SCH (17:00)
[2021-10-15] MEDS ORDERED: DEXTROSE 5% IV SCH (17:00)
[2021-10-15] MEDS ORDERED: DEXTROSE 5% IV STA (17:16)
[2021-10-15] MEDS ORDERED: METHYLPREDNISOLONE IV STA (17:16)
[2021-10-15] MEDS ORDERED: methylPREDNISolone 20 MG in SYRINGE 0 ML IV STA (17:17)
[2021-10-15] MEDS ORDERED: HYDROmorphone INJ 0.5 MG/0.5 ML SYR IV PRN (17:30)
[2021-10-15] MEDS ORDERED: LACTATED RINGER'S 1,000 ML IV SCH (17:30)
[2021-10-15] MEDS ORDERED: ONDANSETRON INJ 2 MG/ML 2 ML VIAL IV PRN (17:30)
--- NOTE | 2021-10-15 18:15 | Discharge Summary ---
Date of Service October 15, 2021 Admission HPI Per Admitting Provider 35yo M w/ hx of Crohn's disease s/p colectomy in 2000 who presents with SBO and Crohn's flare. The patient has been seeing Dr. Nicholson and Dr. Mclaughlin for his Crohn's disease. He was on a steroid taper with Dr. Mclaughlin, and he was getting approval for [facility]. He had seen Dr. Mclaughlin on 10/10, and he was down to prednisone 25 mg PO daily. Yesterday at approx. 10pm, he had acute onset sharp, cramping abdominal pain accompanied by nausea, but no emesis. He also had some watery diarrhea, but no blood bowel movements. No alleviating or exacerbating factors. Came to the ER. Principal Diagnosis SBO due to anastomotic stricture Discharge Exam Constitutional WD/WN, vitals as above Eyes EOM intact bilaterally; no conjunctival abnormality ENMT external ear and nose normal, oropharynx normal Neck trachea midline, no thyromegaly normal visual inspection Respiratory normal respiratory effort, lungs clear to auscultation no respiratory distress Cardiovascular RRR, no murmur, no edema Gastrointestinal (Abdomen) Inspection/Auscultation: + abdomen distended and + hypoactive bowel sounds Percussion/Palpation: + abdomen tender (LLQ and LUQ predominantly) and abdomen soft; no guarding and abdomen not rigid Musculoskeletal no cyanosis or clubbing, extremities motor strength 5/5 Skin no rashes, warm and dry Neurologic moves all extremities and awake Psychiatric Orientation: alert, oriented to person and cooperative Discharge Data Allergies Allergy/AdvReac Type Severity Reaction Status Date / Time ethinyl estradiol Allergy Unknown Verified 10/15/21 02:08 [From Seasonale ()] levonorgestrel Allergy Unknown Verified 10/15/21 02:08 [From Seasonale ()] metronidazole [From Flagyl] AdvReac Mild abdominal Verified 10/15/21 02:08 cramping Consultations 10/15/21 06:38 Consult General Surgery Stat 10/15/21 07:02 ED Decision to Admit Stat 10/15/21 07:08 Consult Gastroenterology Routine 10/15/21 15:41 ED Decision to Admit Stat 10/15/21 18:13 Burn CD for patient Stat Ordered Studies 10/15/21 00:42 CT abd pelvis IV con only Urgent Hospital Course (1) Small bowel obstruction: CT a/p on admission showed: Stricture of the distal ileum at the anastomosis of the J-pouch producing moderate bowel obstruction. - NPO - NG tube placed in ER - low, intermittent suction - Pain and nausea control (2) Inflammatory bowel disease: Previously diagnosed with UC s/p total colectomy and J-pouch formation. Per GI notes, patient underwent pouchoscopy which showed some inflammation above the ileum, so my understanding is that this is an overlap syndrome or possibly new Crohn's dianogsis. - Stool PCR was negative for C. diff or any other infectious etiology on 10/15 - Start Solu-Medrol 20 mg IV Q8h per GI - Closely monitor - GI following - Appreciate their help. (3) Hypertension: Not on home meds. - Monitor BP (4) DVT prophylaxis: IBD is an high-risk, pro-thrombotic state. (PMID:[id number]) - Heparin 5,000 units SQ Q12h Total Time Total Time Spent Total Time Spent (In Minutes): 45 Discharge Plan Discharge Items Patient Disposition: Transfer Acute Care Hospital Reason For Visit: SMALL BOWEL OBSTRUCTION, CHRONS DISEASE Discharge Diagnosis: Small bowel obstruction Activity: Resume your previous activity Non-emergency contact: Primary Care Provider Call non-emergency contact if: your symptoms worsen Follow-up/Referrals: Sloan Nicholson M.D. [Primary Care Provider] - Diet: Nothing by Mouth Addtl Attending Provider Instructions: Admitted for SBO due to stricture at anastomotic site. Bed ready within 3 hours at [facility]. Pending Studies at Discharge: No Stand-Alone Forms: My [facility] Skilled Items Patient informed of condition?: Yes DNR: No Discharge Level of Care: Other Communicable Disease: No Discharge Prognosis: Stable Lines: Peripheral IV Urinary Catheter: No Medications and DC Order Prescriptions: Continued cholecalciferol (vitamin D3) 1,250 mcg (50,000 unit) capsule 50,000 unit PO WK RF: 0 cyanocobalamin (vitamin B-12) 1,000 mcg/mL solution 1,000 mcg IM WE RF: 0 lansoprazole [Prevacid 24Hr] 15 mg capsule,delayed release(DR/EC) 30 mg PO DAILY RF: 0 fluticasone propionate 50 mcg/actuation spray,suspension 2 spray intranasal DAILY RF: 0 prednisone 5 mg tablet 5 mg PO .TAPER UD RF: 0 Discharge Orders: Discharge Order (Routine); Ordered 10/15/21 Ordered By: Alexandru Lan Admission Data Admit Date/Time: 10/15/21 16:01 Attending Provider: Alexandru Lan Admit Provider: Alexandru Lan Primary Care Provider: Sloan Nicholson Other Providers: Alexandru Lan ; David Nicholson ; Tai Dubon Coding Level of Care Code D/C DAY MANAGEMENT >30 MINS Diagnoses Small bowel obstruction K56.609 Inflammatory bowel disease K52.9 Hypertension I10 DVT prophylaxis Z29.9
[2021-10-16] MEDS ORDERED: methylPREDNISolone 20 MG in SYRINGE 0 ML IV SCH
== END 2021-10-15 23:35 | disposition short-term general hospital (02) | DRG 394 ==
LOC: ED 00:11 → 3W 16:01 → INTOOBSV 16:01 → 3W 16:52